=== PATIENT | female | born 1975 | race Caucasian/White ===

== ENCOUNTER 2021-10-04 05:55 | Day surgery (SDC) | payer OTHER, SELFPAY ==
[2021-10-04] MEDS ORDERED: Lactated Ringers 1,000 ML IV ONE (06:45)
[2021-10-04] MEDS ORDERED: Cyanocobalamin (Vitamin B12) 1,000 MCG/ML SDV IM ONE (07:00)
[2021-10-04] MEDS ORDERED: fentaNYL 100 MCG/2 ML SDV ONE (07:25)
[2021-10-04] MEDS ORDERED: Midazolam 1 MG/ML 2 ML SDV ONE (07:25)
[2021-10-04] MEDS ORDERED: Propofol 200 MG/20 ML SDV ONE (07:25)
[2021-10-04] MEDS ORDERED: Glycopyrrolate 0.2 MG/ML 2 ML SDV IVPUSH ONE (07:30)
[2021-10-04] MEDS ORDERED: MVI, Adult with Vitamin K 10 ML, Thiamine 200 MG, Zinc/Copper/Manganese/Selenium 1 ML i... IV ONE ×4 (07:45)
[2021-10-04] MEDS ORDERED: Pantoprazole 40 MG Vial ONE (08:10)
[2021-10-04] MEDS ORDERED: Pantoprazole 40 MG Vial IVPUSH ONE (09:00)
[2021-10-04 10:21] VITALS: BP 109/58; PULSE 84
== END 2021-10-04 10:10 | disposition home or self-care (01) ==
LOC: JP.SDS 05:55
PROVIDERS: ATTEND Surgery
DX: K29.70 Gastritis, unspecified, without bleeding (principal); R06.6 Hiccough; Z98.84 Bariatric surgery status; J45.909 Unspecified asthma, uncomplicated; Z91.040 Latex allergy status
CPT/HCPCS: 87081; C9113; J2250; J2704; J3010; J3411; J3420; J3490; J7120

== ENCOUNTER → 2023-10-08 | Day surgery (SDC) | payer BC, OTHER ==
[~2023-10-08] MED LIST: Midazolam 1 MG/ML 2 ML SDV ONE; Propofol 200 MG/20 ML SDV ONE; fentaNYL 50 MCG/ML SDV ONE
[2023-10-08] MEDS: Lactated Ringers 1,000 ML IV SCH (09:25)
[2023-10-08 11:38] VITALS: BP 108/63; PULSE 74
== END ==
LOC: JP.SDS 08:39
PROVIDERS: ATTEND Student in an Organized Health Care Education/Training Program
DX: K29.50 Unspecified chronic gastritis without bleeding (principal); K95.89 Other complications of other bariatric procedure; Z79.899 Other long term (current) drug therapy; Z91.040 Latex allergy status
CPT/HCPCS: 43239; 88305; J2250; J2704; J3010; J7120